=== PATIENT | female | born 1995 | race Asian ===

== ENCOUNTER 2016-12-29 12:16 | Emergency (ER) | payer BC ==
[~2016-12-29] VITALS: Ht 152.4 cm; Wt 47.6 kg
[2016-12-29 12:23] VITALS: BP 122/78
[2016-12-29 12:59] LABS: APPEARANCE,URINE CLEAR; KETONES,URINE 1+ (NEGATIVE); LEUKOCYTE ESTERASE ,URINE 1+ (NEGATIVE); NITRITE,URINE NEGATIVE (NEGATIVE); PH,URINE 6 (4.5-8.0); PROTEIN,URINE 2+ (NEGATIVE); UROBILINOGEN,URINE NORMAL MG/DL (0.0-1.0)
[2016-12-29 13:11] LABS: BACTERIA,URINE FEW /HPF; MUCUS,URINE MODERATE /LPF (NONE/OCC); RBC,URINE 20-30 /HPF (0 - 2); SQUAMOUS EPITHELIAL CELL,UR MODERATE /LPF (NONE/OCC)
[2016-12-29 13:12] LABS: ICTOTEST NEGATIVE
[2016-12-29] MEDS ORDERED: ZOFRAN ODT4 MG ORAL (13:43)
[2016-12-29] MEDS ORDERED: NITROFURANTOIN100 M2 ORAL (13:45)
[2016-12-29 13:54] VITALS: BP 95/59
== END 2016-12-29 13:58 | disposition home or self-care (01) ==
LOC: EMR 13:43
DX: K52.9 Noninfective gastroenteritis and colitis, unspecified (principal)
CPT/HCPCS: 81003; 81025; 99283